=== PATIENT | male | born 1990 | race Caucasian/White ===

== ENCOUNTER 2017-01-09 21:51 | Emergency (ER) | payer OTHER ==
[2017-01-10 00:14] VITALS: BP 148/92
--- NOTE | 2017-01-10 00:17 | ER Document Report ---
HPI - HPI Patient complains to provider of: ear pain, sinus congestion, sore throat Pain Level: 1 Context: Patient is a 26-year-old male that comes emergency department for chief complaint of one week of congestion, postnasal drip, occasional cough, sore throat. He states that his ears have started hurting more over the past day or so. Fever, neck stiffness, abdominal pain, nausea or vomiting, fever. He denies any daily medications other than [id number] remedies. He denies any medical problems. He states he smokes only once a month. - DERM Skin Color: Normal, [place] Past Medical History - General Information source: Patient - Social History Smoking Status: Never Smoker Chew tobacco use (# tins/day): No Frequency of alcohol use: None Drug Abuse: None Lives with: Family Family History: Reviewed & Not Pertinent Patient has suicidal ideation: No Patient has homicidal ideation: No - Medical History Medical History: Negative Renal/ Medical History: Denies: Hx Peritoneal Dialysis Surgical Hx: Negative - Immunizations Immunizations up to date: Yes Hx Diphtheria, Pertussis, Tetanus Vaccination: Yes Vertical Provider Document - CONSTITUTIONAL General Appearance: WD/WN, No Apparent Distress - INFECTION CONTROL TRAVEL OUTSIDE OF THE [place] IN LAST 30 DAYS: No - HEENT HEENT: Atraumatic, Normocephalic. negative: Normal ENT Exam - Right-sided tympanic membrane dull and erythematous, left side shows serous effusion, patient has mild nasal and sinus congestion, no significant tenderness over the sinuses, normal ENT exam otherwise, Pharyngeal Exudate, Pharyngeal Tenderness, Pharyngeal Erythema - NECK Neck: Normal Inspection - RESPIRATORY Respiratory: Breath Sounds Normal, No Respiratory Distress O2 Sat by Pulse Oximetry: 96 - CARDIOVASCULAR Cardiovascular: Regular Rate, Regular Rhythm - GI/ABDOMEN Gastrointestinal: Abdomen Soft, Abdomen Non-Tender - BACK Back: Normal Inspection - MUSCULOSKELETAL/EXTREMETIES Musculoskeletal/Extremeties: MAEW, FROM, Non-Tender - NEURO Level of Consciousness: Awake, Alert, Appropriate Motor/Sensory: No Motor Deficit, No Sensory Deficit - DERM Integumentary: Warm, Dry, No Rash Course - Vital Signs Vital signs: Temp Pulse Resp BP Pulse Ox 98.4 F 57 L 16 149/82 H 96 01/09/17 22:16 01/09/17 22:16 01/09/17 22:16 01/09/17 22:16 01/09/17 22:16 Discharge - Discharge Clinical Impression: Sinus congestion Ear pain Qualifiers: Laterality: bilateral Qualified Code(s): H92.03 - Otalgia, bilateral Otitis media Qualifiers: Otitis media type: suppurative Laterality: right Chronicity: acute Recurrence: not specified as recurrent Spontaneous tympanic membrane rupture: without spontaneous rupture Qualified Code(s): H66.001 - Acute suppurative otitis media without spontaneous rupture of ear drum, right ear Middle ear effusion Qualifiers: Laterality: left Qualified Code(s): H65.92 - Unspecified nonsuppurative otitis media, left ear Condition: Stable Disposition: HOME, SELF-CARE Additional Instructions: Examination is consistent with middle ear effusion, developing ear infection, and sinus congestion. No other abnormalities are noted on examination. Use nasal spray as directed, take antibiotic as directed, drink plenty of fluids , use Sudafed if needed for congestion, take ibuprofen if needed for pain. Follow-up with primary care. Return to the emergency department for any concerning or worsening symptoms. Prescriptions: Amoxicillin Trihydrate [Amoxil 875 mg Tablet] 1 tab PO BID #20 tablet Fluticasone Propionate [Flonase Nasal [place] 50 Mcg/[place] 16 gm] 2 sprays NASL Q12 #1 inhaler Pseudoephedrine HCl [Sudafed 12-Hour] 120 mg PO Q12 #20 tablet.sa
== END 2017-01-10 00:29 | disposition home or self-care (01) ==
LOC: ER 21:51
DX: H66.001 Acute suppurative otitis media without spontaneous rupture of ear drum, right ear (principal); H65.92 Unspecified nonsuppurative otitis media, left ear; R09.81 Nasal congestion; R05 Cough; J02.9 Acute pharyngitis, unspecified; R09.82 Postnasal drip; H92.03 Otalgia, bilateral
CPT/HCPCS: 99282